=== PATIENT | female | born 1960 | race Caucasian/White ===

== ENCOUNTER 2021-01-27 12:21 | Emergency (ER) | payer OTHER ==
[~2021-01-27] VITALS: Ht 160 cm; Wt 86.3 kg
[2021-01-27 12:33] VITALS: BP 146/89
--- NOTE | 2021-01-27 12:43 | PHYS DOC ---
Past History Past Surgical History: No Surgical History (AJ CONNELL APRN) General Adult EDM: Chief Complaint: LOWER EXT PAIN HPI: HPI: Patient is a 60-year-old female being seen in the ER for right foot pain ankle pain that occurred after she fell down 3 steps and twisted her ankle inward prior to arrival. Patient denies hitting her head or any loss of consciousness, neck or back pain. She is able to bear weight and ambulate. Patient is on Xarelto. (AJ CONNELL APRN) Review of Systems: Review of Systems: 14 body systems of the review of systems have been reviewed. See HPI for pertinent positive and negative responses, otherwise all other systems are negative, nonpertinent or noncontributory (AJ CONNELL APRN) Allergies: Allergies: Allergies Coded Allergies Type Severity Reaction Last Updated Verified Penicillins Allergy Unknown 01/27/21 Yes (AJ CONNELL APRN) Physical Exam: PE: Constitutional: Well developed, well nourished, no acute distress, non-toxic appearance. [] HENT: Normocephalic, atraumatic Eyes: PERRL, EOMI, conjunctiva normal, no discharge. [] Neck: Normal range of motion, no stridor Cardiovascular: Normal peripheral perfusion Lungs & Thorax: Normal work of breathing, no tachypnea Abdomen: Soft Skin: Warm, dry, no erythema, no rash, abrasion noted to lateral aspect of right ankle. [] Back: Normal range of motion Extremities: No tenderness, no cyanosis, no clubbing, ROM intact, no edema. [] Right ankle/foot: Swelling noted to lateral aspect of right ankle and dorsal aspect of foot, no ecchymosis, no obvious deformities, full range of motion, neurovascularly intact Neurologic: Alert and oriented X 3, normal motor function, normal sensory function, no focal deficits noted. [] Psychologic: Affect normal, judgement normal, mood normal. [] (AJ CONNELL APRN) Current Patient Data: Vital Signs: Vital Signs Date Time Temp Pulse Resp B/P (MAP) Pulse Ox O2 Delivery O2 Flow Rate FiO2 01/27/21 12:33 98.4 74 20 146/89 (108) 94 (AJ CONNELL APRN) EKG: EKG: [] (AJ CONNELL APRN) Radiology/Procedures: Radiology/Procedures: PROCEDURE: FOOT RIGHT 3V XR EXAM OF ANKLE_RIGHT 3VIEWS, XR FOOT_RIGHT 3 VIEWS History: Injury. Comparison: None. Technique: 3 views the left ankle. 3 views of the left foot. Findings: Osseous mineralization is normal. There is a mildly comminuted transverse fracture of the fifth metatarsal distal diaphysis with a full shaft width medial displacement of the distal fragment. Acute cortical avulsion fracture of the distal fibular tip. Well-corticated ossific densities at the medial malleolus and lateral malleolus likely represents sequela of old injury. Soft tissue swelling anterior and lateral malleolus, lateral foot. Impression: 1. Cortical avulsion fracture distal fibular tip without significant displacement. 2. Mildly comminuted transverse fracture fifth metatarsal distal diaphysis with full shaft width medial displacement. Electronically signed by: Hesham De Souza MD (01/27/2021 12:56 PM) [id number] DICTATED AND SIGNED BY: HESHAM DE SOUZA MD DATE: 01/27/21 1254 CC: AUREA VEGA MD; AJ CONNELL APRN ~MTH0 0[] (AJ CONNELL APRN) Heart Score: C/O Chest Pain: No Risk Factors: Risk Factors: DM, Current or recent (<one month) smoker, HTN, HLP, family history of CAD, obesity. Risk Scores: Score 0 - 3: 2.5% MACE over next 6 weeks - Discharge Home Score 4 - 6: 20.3% MACE over next 6 weeks - Admit for Clinical Observation Score 7 - 10: 72.7% MACE over next 6 weeks - Early Invasive Strategies (AJ CONNELL APRN) Course & Med Decision Making: Course & Med Decision Making Pertinent Labs and Imaging studies reviewed. (See chart for details) [] Patient is a 60-year-old female being seen in the ER for right foot and ankle pain. An x-ray was performed and it showed mildly comminuted transverse fracture of the fifth metatarsal distal diaphoresis and fifth metatarsal fracture with no displacement. Patient is not tender at eugenio proximal or midshaft of tib/fib, states that most of her pain is to her foot and her ankle. No obvious deformity to midshaft or proximal tib fib. Patient will be placed in a posterior short leg splint given crutches and crutch training. Her pain was controlled in the ER. Patient will be discharged home with pain medication. Patient advised to follow-up with her orthopedic doctor that took care of her for her previous fracture, I attached an orthopedic doctor's information to her discharge papers. I discussed with patient all findings and diagnostic testing as well as the need to follow-up with PCP for further evaluation and treatment or return to the ER if any new or worsening symptoms. Strict return precautions were also discussed at length. Patient voiced understanding and agreement with the plan. Patient is hemodynamically stable at the time of disposition. (AJ CONNELL APRN) Course & Med Decision Making I was the Attending physician on the above date of service of this patient. This patient was evaluated, examined, treated, and dispositioned from the emergency department by the mid-level practitioner. Electronically signed, Leoncio Alexander DO (LEONCIO ALEXANDER DO) Rich Disclaimer: Rich Disclaimer: This electronic medical record was generated, in whole or in part, using a voice recognition dictation system. (AJ CONNELL APRN) Departure Departure: Impression: Primary Impression: Metatarsal bone fracture Qualified Codes: S92.351A - Displaced fracture of fifth metatarsal bone, right foot, initial encounter for closed fracture Disposition: 01 HOME / SELF CARE / HOMELESS Condition: GOOD Referrals: AUREA VEGA MD (PCP) Patient Instructions: Foot Fracture Additional Instructions: You were seen in the ER today for foot injury. You were noted to have a fracture of your foot. Please wear the splint that was placed in the ER and use crutches. You should not bear weight. You were given pain medication in the ER. You also be discharged home with pain medication. For mild pain you can take ibuprofen or naproxen. For severe pain you can take Heppner. This medication is hydrocodone and Tylenol in combination tablet. This medication may cause sedation so do not take when you need to be alert and do not take with alcohol. You can follow-up with the orthopedic doctor that you saw for your last foot fracture but if you do not have an orthopedic doctor you can follow-up with the orthopedic group at [facility]. You can call [phone] to set up an appointment. You should perform range of motion exercises to prevent stiffness of your joints. Splints help with the pain and can promote healing but immobility can cause chronic pain over time. Please refer to these attached instructions regarding range of motion exercises. Keep the splint clean and dry avoid getting it wet. If the splint gets wet you will need to have it replaced. You should use ice and elevation to help with the swelling and pain. For the first 24 hours apply ice 20 minutes on 20 minutes off 4 times per day. Ensure that ice is in a plastic bag as to not get the splint wet. Please return to the emergency department if you develop any of the following symptoms: Increasing pain that does not improve with treatments. New numbness or tingling Warmth, redness, skin discoloration, skin breakdown, drainage from under splint or near splinted area. Increasing inability to move your extremity or digits. Foul odor coming from splint Fevers or chills Nausea or vomiting Persistent lightheadedness We would be happy to see you for any other concerning symptoms regarding your splinted extremity. EMERGENCY DEPARTMENT GENERAL DISCHARGE INSTRUCTIONS Thank you for coming to [facility] (ED) today and trusting us with you care. We trust that you had a positivie experience in our Emergency Department. If you wish to speak to the department management, you may call the director at [phone]. YOUR FOLLOW UP INSTRUCTIONS ARE FOLLOWS: 1. Do you have a private Doctor? If you do not have a private doctor, please ask for a resource list of physicians or clinics that may be able to assist you with follow up care. 2. The Emergency Physician has interpreted your x-rays. The X-Ray specialist will also review them. If there is a change in the findings, you will be notified in 48 hours when at all possible. 3. A lab test or culture has been done, your results will be reviewed and you will be notified if you need a change in treatment. ADDITIONAL INSTRUCTIONS AND INFORMATION: 1. Your care today has been supervised by a physician who is specially trained in emergency care. Many problems require more than one evaluation for a complete diagnosis and treatment. We recommend that you schedule your follow up appointment as recommended to ensure complete treatment of you illness or injury. If you are unable to obtain follow up care and continue to have a problem, or if your condition worsens, we recommend that you return to the ED. 2. We are not able to safely determine your condition over the phone nor are we able to give sound medical advice over the phone. For these safety reasons, if you call for medical advice we will ask you to come to the ED for further evaluation. 3. If you have any questions regarding these discharge instructions please call the ED at [phone]. SAFETY INFORMATION: In the interest of safety, wellness, and injury prevention; we encourage you to wear your sealbelt, if you smoke; quite smoking, and we encourage family to use a protective helmet for bicycling and other sporting events that present an increased risk for head injury. IF YOUR SYMPTOMS WORSEN OR NEW SYMPTOMS DEVELOP, OR YOU HAVE CONCERNS ABOUT YOUR CONDITION; OR IF YOUR CONDITION WORSENS WHILE YOU ARE WAITING FOR YOUR FOLLOW UP APPOINTME NT; EITHER CONTACT YOUR PRIMARY CARE DOCTOR, THE PHYSICIAN WHOSE NAME AND NUMBER YOU WERE GIVEN, OR RETURN TO THE ED IMMEDIATELY. Scripts Hydrocodone Bit/Acetaminophen (HYDROCODONE-APAP 5-325 ) 1 Each Tablet 1 TAB PO PRN Q6HRS PRN for PAIN for 2 Days, #8 TAB 0 Refills Prov: AJ CONNELL APRN 01/27/21 AJ CONNELL APRN Jan 27, 2021 12:43 LEONCIO ALEXANDER DO Feb 01, 2021 17:50
--- NOTE | 2021-01-27 12:58 | RAD ---
XR EXAM OF ANKLE_RIGHT 3VIEWS, XR FOOT_RIGHT 3 VIEWS History: Injury. Comparison: None. Technique: 3 views the left ankle. 3 views of the left foot. Findings: Osseous mineralization is normal. There is a mildly comminuted transverse fracture of the fifth metat arsal distal diaphysis with a full shaft width medial displacement of the distal fragment. Acute nancie ical avulsion fracture of the distal fibular tip. Well-corticated ossific densities at the medial mal leolus and lateral malleolus likely represents sequela of old injury. Soft tissue swelling anterior a nd lateral malleolus, lateral foot. Impression: 1. Cortical avulsion fracture distal fibular tip without significant displacement. 2. Mildly comminuted transverse fracture fifth metatarsal distal diaphysis with full shaft width med ial displacement. Electronically signed by: Hesham Juárez MD (01/27/2021 12:56 PM) [id number]
[2021-01-27] MEDS ORDERED: HYDR-2155 PO (13:14)
[2021-01-27] MEDS ORDERED: HYDROcodone/APAP 5/325MG 1 TAB TABLET PO ONE (13:15)
== END 2021-01-27 13:31 | disposition home or self-care (01) ==
LOC: ER 12:21
DX: S92.351A Displaced fracture of fifth metatarsal bone, right foot, initial encounter for closed fracture (principal); Z88.0 Allergy status to penicillin; W10.8XXA Fall (on) (from) other stairs and steps, initial encounter; Y93.89 Activity, other specified; Y92.89 Other specified places as the place of occurrence of the external cause; Y99.8 Other external cause status
CPT/HCPCS: 29515; 73610; 73630; 99284

== ENCOUNTER → 2021-03-06 | Outpatient (CLI) | payer OTHER ==
[~2021-03-06] MED LIST: HYDR-2155 PO
--- NOTE | 2021-03-06 14:03 | RAD ---
EXAM: Right foot and ankle, 3 views. HISTORY: Pain. COMPARISON: None. FINDINGS: 3 views of the right foot and ankle are obtained. There are multiple corticated ossific den sities lateral to the lateral malleolus and inferior to the medial and lateral malleoli, the appearan ce of which favors chronic avulsion fracture fragments. Given lateral ankle soft tissue swelling, the possibility of a superimposed acute avulsion fracture is not excluded. The ankle mortise is intact. There is a comminuted displaced fracture of the distal fifth metatarsal. This is possibly subacute, g philipen suggestion of surrounding callus formation. There is no foreign body. There is a small plantar s pur. There is dorsal forefoot soft tissue swelling. IMPRESSION: 1. Comminuted distal fifth metatarsal fracture. This may be subacute. 2. Avulsion fracture fragments along the lateral lateral malleolus and inferior bilateral malleoli, c hronic in appearance. Given lateral ankle soft tissue swelling, the possibility of a superimposed acu te lateral malleolar avulsion fracture fragment is not excluded. Electronically signed by: Kina Shelton MD (03/06/2021 2:01 PM) [id number]
== END ==
LOC: LAB 13:32
PROVIDERS: ATTEND Orthopaedic Surgery
DX: S92.351A Displaced fracture of fifth metatarsal bone, right foot, initial encounter for closed fracture (principal); S82.831A Other fracture of upper and lower end of right fibula, initial encounter for closed fracture; M79.89 Other specified soft tissue disorders; X58.XXXA Exposure to other specified factors, initial encounter; Y93.89 Activity, other specified; Y92.89 Other specified places as the place of occurrence of the external cause; Y99.8 Other external cause status
CPT/HCPCS: 73610; 73630

== ENCOUNTER 2021-04-04 15:51 | Emergency (ER) | payer OTHER ==
[~2021-04-04] VITALS: Ht 157.5 cm; Wt 83.9 kg
[2021-04-04 16:08] VITALS: BP 152/87
--- NOTE | 2021-04-04 16:35 | RAD ---
Exam Date: 04/04/2021 4:22 PM XR RIBS MIN 3 VIEWS RT W/PA CHEST Indication: Reason: fall, rib pain / Spl. Instructions: / History: . FINDINGS: No acute rib fracture is seen. Cardiac silhouette is not enlarged. No pulmonary vascular congestion is seen. Left basilar subsegmental atelectasis and/or scarring is noted. No pleural effusion or pn eumothorax. IMPRESSION: No acute rib fracture identified. Left basilar subsegmental atelectasis and/or scarring. Electronically signed by: Tu Alva MD (04/04/2021 4:33 PM) SORAIDA
--- NOTE | 2021-04-04 16:47 | PHYS DOC ---
Past History Past Surgical History: No Surgical History (AJ CONNELL APRN) Alcohol Use: None (AJ CONNELL APRN) General Adult EDM: Chief Complaint: RIB PAIN HPI: HPI: Patient is a 60-year-old female who presents to the emergency department today for right anterior rib pain started after she fell 2 days ago. Patient reports that she was bent over Washing her hair, patient is in a postop boot and she reports her boot slipped and she hit her ribs. Patient denies hitting her head or loss of consciousness. She rates her pain 10 out of 10. She reports that it hurts to take a deep breath. She denies any fevers, worsening of her chronic cough due to COPD, head, neck or back pain. (AJ CONNELL APRN) Review of Systems: Review of Systems: Constitutional: See HPI Musculoskeletal: See HPI Integument: See HPI Neurologic: See HPI (AJ CONNELL APRN) Allergies: Allergies: Allergies Coded Allergies Type Severity Reaction Last Updated Verified Penicillins Allergy Unknown 01/27/21 Yes (AJ CONNELL APRN) Physical Exam: PE: Constitutional: Well developed, well nourished, no acute distress, non-toxic appearance. [] HENT: Normocephalic, atraumatic, bilateral external ears normal, oropharynx m oist, no oral exudates, nose normal. [] Eyes: PERRL, EOMI, conjunctiva normal, no discharge. [] Neck: Normal range of motion, no tenderness, supple, no stridor. [] Cardiovascular:Heart rate regular rhythm, no murmur [] Lungs & Thorax: Bilateral breath sounds clear to auscultation, pain with palpa tion to right anterior ribs, no flail segments or obvious deformities [] Abdomen: Bowel sounds normal, soft, no tenderness, obese, no masses, no pulsatile masses. [] Skin: Warm, dry, no erythema, no rash. [] Back: No tenderness, normal range of motion Extremities: No tenderness, no cyanosis, no clubbing, ROM intact, no edema. [] Neurologic: Alert and oriented X 3, normal motor function, normal sensory function, no focal deficits noted. [] Psychologic: Affect normal, judgement normal, mood normal. [] (AJ CONNELL APRN) Current Patient Data: Vital Signs: Vital Signs Date Time Temp Pulse Resp B/P (MAP) Pulse Ox O2 Delivery O2 Flow Rate FiO2 04/04/21 16:08 98.9 85 18 152/87 (108) 95 Room Air (AJ CONNELL APRN) EKG: EKG: [] (AJ CONNELL APRN) Radiology/Procedures: Radiology/Procedures: []PROCEDURE: RIBS RIGHT AND PA CHEST Exam Date: 04/04/2021 4:22 PM XR RIBS MIN 3 VIEWS RT W/PA CHEST Indication: Reason: fall, rib pain / Spl. Instructions: / History: . FINDINGS: No acute rib fracture is seen. Cardiac silhouette is not enlarged. No pulmonary vascular congestion is seen. Left basilar subsegmental atelectasis and/or scarring is noted. No pleural effusion or pneumothorax. IMPRESSION: No acute rib fracture identified. Left basilar subsegmental atelectasis and/or scarring. Electronically signed by: Jerod Alva MD (04/04/2021 4:33 PM) [facility] DICTATED AND SIGNED BY: JEROD ALVA MD DATE: 04/04/21 1630 CC: AUREA VEGA MD; EMERGENCY,DEPARTMENT; AJ CONNELL APRN ~MTH0 0 (AJ CONNELL APRN) Heart Score: C/O Chest Pain: N/A Risk Factors: Risk Factors: DM, Current or recent (<one month) smoker, HTN, HLP, family history of CAD, obesity. Risk Scores: Score 0 - 3: 2.5% MACE over next 6 weeks - Discharge Home Score 4 - 6: 20.3% MACE over next 6 weeks - Admit for Clinical Observation Score 7 - 10: 72.7% MACE over next 6 weeks - Early Invasive Strategies (AJ CONNELL APRN) Course & Med Decision Making: Course & Med Decision Making Pertinent Labs and Imaging studies reviewed. (See chart for details) Patient presents to the emergency department for anterior right rib pain after hitting it 2 days ago. Imaging was performed was negative for any acute findings. Patient advised that take anti-inflammatory medications, apply ice and follow-up with your doctor. I discussed with patient all findings and diagnostic testing as well as the need to follow-up with PCP for further evaluation and treatment or return to the ER if any new or worsening symptoms. Strict return precautions were also discussed at length. Patient voiced u nderstanding and agreement with the plan. Patient is hemodynamically stable at the time of disposition. (AJ CONNELL APRN) Dragon Disclaimer: Dragon Disclaimer: This electronic medical record was generated, in whole or in part, using a voice recognition dictation system. (AJ CONNELL APRN) Attending Co-Sign The patient was seen and interviewed as well as examined at the bedside. The chart was reviewed. The case was discussed. Agree with the plan of care. (JACINTO MILES DO) Departure Departure: Impression: Primary Impression: Rib contusion Qualified Codes: S20.211A - Contusion of right front wall of thorax, initial encounter Disposition: HOME / SELF CARE / HOMELESS Condition: GOOD Referrals: AUREA VEGA MD (PCP) Patient Instructions: Rib Contusion Additional Instructions: You were seen in the emergency department for right rib pain following a fall. Imaging was performed that showed no acute fractures. You can take Tylenol and/or ibuprofen for your pain and also you can apply ice. Follow-up with your primary care provider on Wednesday regarding your ER visit return to the emergency department if you develop worsening of your pain, difficulty breathing or shortness of breath, difficulty ambulating or poor coordination, worsening of her cough, high fevers refractory to treatment or head/neck or back pain. AJ CONNELL APRN Apr 04, 2021 16:47 JACINTO MILES DO Apr 07, 2021 10:47
== END 2021-04-04 17:05 | disposition home or self-care (01) ==
LOC: ER 15:51
DX: S20.211A Contusion of right front wall of thorax, initial encounter (principal); Z88.0 Allergy status to penicillin; W18.00XA Striking against unspecified object with subsequent fall, initial encounter; Y93.89 Activity, other specified; Y92.89 Other specified places as the place of occurrence of the external cause; Y99.8 Other external cause status
CPT/HCPCS: 71101; 99283-25

== ENCOUNTER → 2021-06-30 | Outpatient (CLI) | payer OTHER ==
--- NOTE | 2021-06-30 13:52 | RAD ---
EXAM: CT CHEST WITHOUT CONTRAST (LDCT LUNG CANCER SCREENING). HISTORY: Risk factors for pulmonary malignancy. Cigarette smoking. TECHNIQUE: CT of the chest was performed without intravenous contrast using a low-dose lung screening protocol. Findings analysis is based on ACR Lung-RADS v1.1. *One or more of the following individual ized dose reduction techniques were utilized for this examination: 1. Automated exposure control. 2. Adjustment of the mA and/or kV according to patient size. 3. Use of iterative reconstruction technique. COMPARISON: None. FINDINGS: The heart is normal in size. There is no coronary artery calcification. There is no lymphad enopathy. There is a tiny hiatal hernia. There is no pneumothorax or pleural effusion. There is poste rior dependent and basilar atelectasis. There is lingular and medial right middle lobe atelectasis or scarring. There is minimal right apical and lateral midthoracic subpleural bleb formation due to emp hysema. There is no suspicious pulmonary nodule. There is no acute finding involving the upper abdome n or osseous structures. There is a chronic mild superior endplate depression with Schmorl's node at T12. There is also a chronic minimal superior endplate depression at L4. IMPRESSION: 1. No suspicious pulmonary nodule. Lung RADS category 1: Annual low-dose lung cancer screening CT is recommended. 2. Minimal emphysema. Electronically signed by: Kina Shelton MD (06/30/2021 1:50 PM) [id number]
== END ==
LOC: CT 12:47
PROVIDERS: ATTEND Family Medicine
DX: Z12.2 Encounter for screening for malignant neoplasm of respiratory organs (principal); J43.9 Emphysema, unspecified; F17.210 Nicotine dependence, cigarettes, uncomplicated; J98.11 Atelectasis; M51.44 Schmorl's nodes, thoracic region; K44.9 Diaphragmatic hernia without obstruction or gangrene
CPT/HCPCS: 71271